=== PATIENT | male | born 1980 | race Native Hawaiian/Other Pacific Islander ===

== ENCOUNTER 2018-07-04 14:41 | Outpatient (CLI) | payer BC | END 2018-07-04 21:15 | disposition home or self-care (01) | LOC: LABW 14:41 | DX: R68.89 Other general symptoms and signs (principal) ==

== ENCOUNTER 2020-09-29 10:26 | Outpatient (CLI) | payer BC | END 2020-09-29 19:45 | disposition home or self-care (01) | LOC: US 10:26 | PROVIDERS: ATTEND Family Medicine | DX: R14.0 Abdominal distension (gaseous) (principal); R10.13 Epigastric pain; R10.9 Unspecified abdominal pain ==

== ENCOUNTER 2022-09-27 09:30 | Outpatient (CLI) | payer OTHER | END 2022-09-27 21:11 | disposition home or self-care (01) | LOC: RAD 09:30 | PROVIDERS: ATTEND Family Medicine | DX: S99.929A Unspecified injury of unspecified foot, initial encounter (principal); R60.0 Localized edema; M79.672 Pain in left foot; M25.572 Pain in left ankle and joints of left foot; Y92.89 Other specified places as the place of occurrence of the external cause ==